=== PATIENT | male | born 1980 | race Caucasian/White ===

== ENCOUNTER 2018-07-09 18:30 | Emergency (ER) | payer OTHER ==
[~2018-07-09] VITALS: Ht 165.1 cm; Wt 81.6 kg
--- NOTE | 2018-07-09 20:58 | ED UPPER/LOWER EXTREMITY COMPL ---
History of Present Illness General Chief Complaint: Lower Extremity Problems Stated Complaint: SENT BY URGENT CARE FOR RLE ?CELLULITIS/DVT Source: patient Exam Limitations: no limitations Vital Signs & Intake/Output Vital Signs & Intake/Output Vital Signs Date Time Temp Pulse Resp B/P B/P Pulse O2 O2 Flow FiO2 Mean Ox Delivery Rate 07/097 97.2 66 16 136/68 99 Room Air 07/09 2113 Room Air 07/09 1835 96.5 62 18 143/53 99 Room Air Room Air ED Intake and Output 07/10 0000 07/09 1200 Intake Total 0 Output Total Balance 0 Intake, Oral 0 Patient 180 lb Weight Weight Reported by Patient Measurement Method Allergies Coded Allergies: NO KNOWN ALLERGIES (07/03/11) Triage Note: PT TO ED FROM WALK IN CLINIC, SENT IN FOR RIGHT LOWER LEG CELLULITIS, RLE RED IN APPEARANCE, PT C/O "TIGHTNESS TO THE SKIN, DULL ACHE", INITIAL INJURY BUG BITES, REDNESS STARTED A COUPLE OF DAYS AGO, "TODAY IT LOOKS BETTER". Triage Nurses Notes Reviewed? yes Onset: Gradual Duration: day(s):, waxing and waning Timing: recent history Severity: mild Pain/Injury Location: Right: Leg. Method of Injury: unknown Modifying Factors: Improves With: rest. Associated Symptoms: swelling, redness HPI: 38 yo gentleman presents from urgent care with swelling of his right lower extremity x 4-5 days, also with red rash for the past week. He notes no fever, chills. He notes that he has been on Keflex for the past 4 days due to a bee sting in [place], "and I think it's been helping my leg too." Past History Travel History Traveled to [place] past 21 day No Medical History Any Pertinent Medical History? see below for history Neurological: NONE EENT: NONE Cardiovascular: NONE Respiratory: NONE Gastrointestinal: NONE Hepatic: NONE Renal: NONE Musculoskeletal: NONE Psychiatric: NONE Endocrine: NONE Blood Disorders: NONE Cancer(s): NONE TRANSCRIPTION COORDINATOR/Reproductive: NONE Surgical History Surgical History: none Psychosocial History Who do you live with Spouse What is your primary language Divehi Tobacco Use: Never used ETOH Use: denies use Illicit Drug Use: denies illicit drug use Family History Hx Contributory? No Review of Systems Review of Systems Constitutional: Reports: no symptoms. EENTM: Reports: no symptoms. Respiratory: Reports: no symptoms. Cardiovascular: Reports: no symptoms. Gastrointestinal/Abdominal: Reports: no symptoms. Genitourinary: Reports: no symptoms. Musculoskeletal: Reports: no symptoms. Skin: Reports: no symptoms. Neurological/Psychological: Reports: no symptoms. Hematologic/Endocrine: Reports: no symptoms. Immunological: Reports: no symptoms. All Other Systems: Reviewed and Negative Physical Exam Physical Exam General Appearance: well developed/nourished, mild distress Head: atraumatic Eyes: Bilateral: normal appearance. Ears, Nose, Throat: normal pharynx, normal ENT inspection Neck: normal inspection Cardiovascular/Respiratory: normal breath sounds Back: normal inspection Leg Left: 1+ edema, no sign of infection Leg Right: right leg w/ dark red rash around lower leg, extending above knee. no lymphangitis streaking or joint effusion. leg is cool to touch, 2+ edema. Non tender to palpation. Progress Differential Diagnosis: edema vs dvt vs partially treated cellulitis.... Plan of Care: Orders Procedure Date/time Status US-DUPLEX VENOUS EXTREM UNI 07/09 2034 Active Diagnostic Imaging: Viewed by Me: Ultrasound. Discussed w/RAD: Ultrasound. Radiology Impression: vPATIENT: HUNTER YUN PRESENT AGE: 38 PATIENT ACCOUNT NO: [id number] : 78 LOCATION: [facility] ORDERING PHYSICIAN: Nancy PRITCHETT SERVICE DATE: 07/09/18-2033 EXAM TYPE: US - US -DUPLEX VENOUS EXTREM UNI EXAMINATION: US TRIPLEX LOWER EXTREMITY, RIGHT CLINICAL INFORMATION: Right leg edema swelling and redness COMPARISON: None TECHNIQUE: Color-flow triplex imaging with spectral analysis and compression Doppler were performed on the lower extremity. FINDINGS: Respiratory variation, normal compression and augmented flow are noted throughout the lower extremity. The visualized common femoral vein, superficial femoral vein, profunda femoral vein, popliteal vein and midcalf peroneal and posterior tibial venous segments show no evidence of deep venous thrombosis. There is no Solo's cyst. IMPRESSION : No evidence of deep venous thrombosis involving the lower extremity. DICTATED BY: Petar Roman MD DATE/TIME DICTATED:07/09/182125 CULTURAL ANTHROPOLOGY PROFESSOR: CELINE DATE/TIME TRANSCRIBED:07/09/182125 CONFIDENTIAL, DO NOT COPY WITHOUT APPROPRIATE AUTHORIZATION. <Electronically signed in Other Vendor System> SIGNED BY: Petar Roman MD 07/09/182129 Departure Departure Disposition: HOME OR SELF CARE Condition: Stable Clinical Impression Primary Impression: Edema Secondary Impressions: Cellulitis Referrals: Fisher ,Kiran Wilson (PCP/Family) Departure Forms: Customer Survey General Discharge Information Comments pt's edema and anaya erythema on lower extremity, likely due to inflammation and partially treated cellulitis... i encouraged him to continue his keflex, and follow up with his PMD this week, returning as needed to the ED if issues arise.
--- NOTE | 2018-07-09 21:30 | ULTRASOUND REPORT ---
EXAMINATION: US TRIPLEX LOWER EXTREMITY, RIGHT CLINICAL INFORMATION: Right leg edema swelling and redness COMPARISON: None TECHNIQUE: Color-flow triplex imaging with spectral analysis and compression Doppler were performed on the lower extremity. FINDINGS: Respiratory variation, normal compression and augmented flow are noted throughout the lower extremity. The visualized common femoral vein, superficial femoral vein, profunda femoral vein, popliteal vein and midcalf peroneal and posterior tibial venous segments show no evidence of deep venous thrombosis. There is no Solo's cyst. IMPRESSION: No evidence of deep venous thrombosis involving the lower extremity.
[2018-07-09 22:07] VITALS: BP 136/68
== END 2018-07-09 22:25 ==
LOC: ERH 18:30
DX: L03.116 Cellulitis of left lower limb (principal); R60.0 Localized edema; R21 Rash and other nonspecific skin eruption